=== PATIENT | female | born 2000 | race Caucasian/White ===

== ENCOUNTER 2019-05-16 00:44 | Emergency (ER) | payer MEDICAID ==
[~2019-05-16] VITALS: Ht 157.5 cm; Wt 70.0 kg
[2019-05-16 01:16] LABS: CLARITY URINE CLEAR (CLEAR); COLOR URINE YELLOW (YELLOW); KETONES URINE NEGATIVE (NEGATIVE); LEUKOCYTE ESTERASE URINE TRACE (NEGATIVE); NITRITE URINE NEGATIVE (NEGATIVE); OCCULT BLOOD URINE 2+ (NEGATIVE); PH URINE >=9.0 (4.5-8.0); PROTEIN URINE NEGATIVE (NEGATIVE); UROBILINOGEN URINE 0.2 E.U./dL (0.2-1.0)
[2019-05-16 01:49] VITALS: BP 135/78
== END 2019-05-16 01:50 | disposition home or self-care (01) ==
LOC: ER 00:44
DX: F41.9 Anxiety disorder, unspecified (principal)
CPT/HCPCS: 81025; 99283